=== PATIENT | female | born 1965 | race African-American/Black ===

== ENCOUNTER 2017-04-16 09:25 | Emergency (ER) | payer MEDICARE, OTHER ==
--- NOTE | ~2017-04-16 | CR229 ---
[facility] A Service of [facility] & [facility] RADIOLOGY TEXT RESULTS PATIENT: MUKUL GIBSON LOCATION: [facility] : 63 UNIT #: [id number] AGE: [address]: Narcisa Piedra MD SEX: F ORDER DR: [id number] [facility] [address] [place], [place] [address] [id number] MR#: [id number] Acc #: [id number] NAME: MUKUL GIBSON : 1965 SEX: F STUDY DATE/TIME: 04/16/2017 UNIT: [facility] ROOM: STUDY DESCRIPTION: CR Shoulder Min 2 View Lt Attending Physician: Narcisa Piedra M.D. Ordering Physician: Narcisa Piedra M.D. Primary Care Physician: Fede Mi M.D. MEDICAL IMAGING REPORT This report is preliminary unless electronic signature is present EXAM Left shoulder 3 views 04/16/2017 1046 hours. HISTORY 51-year-old woman who fell out of bathtub last night with pain in left shoulder. COMPARISON Left shoulder film 09/02/2016. FINDINGS AP views in internal and external rotation and a scapula Y-view demonstrate no acute fracture or dislocation. The upper ribs and clavicle are intact. IMPRESSION Negative left shoulder. Dictated by... Damari Gonzalez M.D. THIS IS AN ELECTRONICALLY VERIFIED REPORT Damari Gonzalez M.D. at 04/16/2017 2:31 PM [place] TD: 04/16/2017 12:18 JOB #: [id number] MEDICAL IMAGING REPORT Page 1 of 1 COPY
[~2017-04-16 09:25] MED LIST: ULTRAM PO; VOLTAREN75 MG PO
== END 2017-04-16 12:20 | disposition home or self-care (01) ==
LOC: CED 09:25
DX: S40.012A Contusion of left shoulder, initial encounter (principal); I10 Essential (primary) hypertension; J45.909 Unspecified asthma, uncomplicated; G43.909 Migraine, unspecified, not intractable, without status migrainosus; F17.210 Nicotine dependence, cigarettes, uncomplicated; Y92.009 Unspecified place in unspecified non-institutional (private) residence as the place of occurrence of the external cause; W18.2XXA Fall in (into) shower or empty bathtub, initial encounter; Y92.002 Bathroom of unspecified non-institutional (private) residence as the place of occurrence of the external cause
CPT/HCPCS: 73030; 99283